=== PATIENT | male | born 1985 | race Caucasian/White ===

== ENCOUNTER 2024-09-20 16:47 | Emergency (ER) | payer OTHER, SELFPAY ==
--- NOTE | ~2024-09-20 | CT_ITS ---
CLINICAL INDICATION: Right flank pain COMPARISON: None. TECHNIQUE: Multiple contiguous axial images of the abdomen and pelvis were performed without the admi nistration of intravenous contrast The dose-length product (DLP) was 803.37 mGy-cm. Automated exposure control and iterative reconstruction technique were employed. FINDINGS/OBSERVATIONS: Visualized lower thorax: Bibasilar atelectasis. The bilateral lung bases are otherwise clear The heart is of normal size, without pericardial effusion. Small hiatal hernia is present. Liver: The liver demonstrates homogeneous attenuation and is not enlarged. Gallbladder and biliary system: The gallbladder is only minimally distended, and otherwise unremarkable. Pancreas: Limited evaluation of the pancreas secondary to the lack of intravenous contrast. Spleen: The spleen demonstrates homogeneous attenuation and is not enlarged. Kidneys: The bilateral kidneys are unremarkable, without hydronephrosis or renal calculi. Adrenal glands: Unremarkable. Gastrointestinal tract: Colonic diverticulosis without surrounding inflammatory change. Fecal stasis within the colon. Appendix: The air-filled appendix is of normal caliber (axial series, images 116 through 141). Vasculature: Unremarkable. Lymph nodes: No pathologically enlarged or morphologically suspicious lymph nodes within the retroperitoneum or at the root of the mesentery. Pelvic structures: The bladder is only minimally distended, and otherwise unremarkable. The prostate gland is not enlarged. Body wall and musculoskeletal: Fat and likely urachal-containing right inguinal hernia. Fat-containing umbilical hernia. 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 IMPRESSION: No obstructive uropathy. Normal appendix. Fat and likely urachal-containing right inguinal hernia. Reviewed, dictated and finalized at location A.
[2024-09-20 16:49] VITALS: BP 133/74; PULSE 129; RESP 18; TEMP 36.7; O2SAT 98
--- OUTSIDE RECORDS SUMMARY | 2024-09-20 16:52 | XMS_ITS | Clinical Summary ---
Author Organization [facility] Address [address] [place] [address] Care Team Providers Care Meal Temperer Name Role Phone Unavailable Primary Care Provider Unavailabl e Source Comments [facility],non-owned Affiliates and Associated Physician Practices is amultiple site organization consisting of ambulatory clinics and hospital sitesin [place], [place], [place] and [place]. This disclosure is being madepursuant to the Care Everywhere program and may not contain all information available regarding this patient. 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 Gender Identity Not on file Sexual Orientation Not on file Plan of Treatment Health Maintenance Due Date Last Done Comments LIPID TESTING 1984 HIV SCREENING 1999 HEPATITIS C SCREENING 05/21/2002 DTAP/TDAP/TD VACCINES (1 - Tdap) 2003 HEPATITIS B VACCINE (1 of 3 - 19+ 3-dose series) 2003 COVID-19 VACCINE ( - 2023-2 5 season) 2023 DEPRESSION SCREENING 04/06/2024 INFLUENZA VACCINE (Season Ended) 2024 ZOSTER VACCINE (1 of 2) 2034 HIB VACCINE Aged Out No longer eligi ble based on patient's age to complete this topic HPV VACCINE Aged Out No longer eligi ble based on patient's age to complete this topic MENINGOCOCCAL (Group B) VACC INE SHARED DECISION-MAKING Aged Out No longer eligibl e based on patient's age to complete this topic MENINGOCOCCAL GROUPS A/C/Y/W VACCINE Aged Out No longer eligible b ased on patient's age to complete this topic PNEUMOCOCCAL VACCINE Aged Out No long er eligible based on patient's age to complete this topic
[2024-09-20 17:07] VITALS: BP 117/73; PULSE 75; RESP 18; TEMP 36.6; O2SAT 94
[2024-09-20 17:20] LABS: Basophils Percent Auto 0.4 % (0.2-1.2); Eosinophils Percent Auto 0.2 % (0-4.4); Hematocrit 49.3 % (42.0-52.0); Hemoglobin 16.4 g/dL (14.0-18.0); Immature Granulocyte Absolute 0.03 K/mm3 (0.00-0.031); Immature Granulocyte Percent A 0.3 % (0-0.5); Lymphocytes Absolute Auto 1.29 K/mm3 (0.9-3.2); Lymphocytes Percent Auto 12.4 % (18.3-44.2); Mean Corpuscular HGB Conc 33.3 g/dl (32-36); Mean Corpuscular Hemoglobin 29.6 pg (26-34); Monocytes Absolute Auto 0.9 K/mm3 (0.1-0.6); Monocytes Percent Auto 8.3 % (2.6-8.5); Neutrophils Absolute Auto 8.2 K/mm3 (1.3-6.7); Neutrophils Percent Auto 78.4 % (45.5-73.1); Platelet Count Result 183 k/mm3 (150-375); Red Blood Count 5.54 M/mm3 (4.6-6.20); Red Cell Distribution Width 12.3 % (11.5-14.5); White Blood Count 10.4 K/mm3 (4.5-10.0)
[2024-09-20] MEDS: SODIUM CHLORIDE 0.9% IV 1,000 ML 999 ML IV CONT ×2 (17:22→20:01)
--- NOTE | 2024-09-20 17:25 | ED.ABDPAIN ---
HPI - Abdominal Pain General Chief Complaint: Urogenital-Male Stated Complaint: back pain Time Seen by Provider: 09/20/24 17:07 Source: patient Mode of arrival: ambulatory Limitations: no limitations History of Present Illness HPI narrative: This is a 39-year-old male that presents to the emergency department for right flank pain. Ongoing over the last couple of days. Reports he believes he has a kidney stone. He has had them before. He does not currently have a urologist. Reports some dysuria. Denies fevers, hematuria. Related Data Allergies Allergy/AdvReac Type Severity Reaction Status Date / Time No Known Allergies Allergy Unverified 09/20/24 19:28 Review of Systems Review of Systems: All systems reviewed & are unremarkable except as noted in HPI and below PMFSH Past Medical History Medical History (Updated 09/20/24 @ 20:25 by Eden Rhodes PA-C) No active medical problems Social History Social History (Updated 09/20/24 @ 17:25 by Eden Rhodes PA-C) Smoking status: Never smoker Exam Narrative: GENERAL: Uncomfortable, well-nourished, and in no acute distress. HEAD: Normocephalic, atraumatic. EYES: EOMI. ENT: Nares clear, no rhinorrhea or epistaxis. Mucous membranes moist. Oropharynx without tonsillar hypertrophy exudate or other lesions. CHEST: Clear to auscultation. No respiratory distress. No wheezes rales or rhonchi HEART: Regular rate and rhythm. No murmur heard. Normal peripheral pulses. ABDOMEN: Soft, nontender, nondistended, normal active bowel sounds. EXTREMITIES: Normal range of motion. No edema. SKIN: Warm, dry, no rash. NEURO: No focal deficits. Alert and oriented x3. PSYCH: Normal mood and affect Course Course Emergency Course: Patient updated on his workup and agrees with plan of care. Resting comfortably Vital Signs Vital signs: Vital Signs Temperature 98.1 F 09/20/24 16:49 Pulse Rate 129 H 09/20/24 16:49 Respiratory Rate 18 09/20/24 16:49 Blood Pressure 133/74 09/20/24 16:49 Pulse Oximetry 98 09/20/24 16:49 Oxygen Delivery Room Air 09/20/24 16:49 Temperature 98 F 09/20/24 17:07 Pulse Rate 81 09/20/24 20:25 Respiratory Rate 18 09/20/24 20:25 Blood Pressure 167/99 H 09/20/24 20:25 Pulse Oximetry 99 09/20/24 20:25 Oxygen Delivery Room Air 09/20/24 17:07 MDM - Abdominal Pain MDM Narrative Medical decision making narrative: Patient presents to the emergency department for right flank pain. Ongoing over the last couple of days. He is afebrile and nontoxic appearing. Tachycardic upon arrival, this normalized with IV fluid hydration. CBC with mild leukocytosis to 10.4. Metabolic panel with mild elevation in creatinine to 1.4. Urine also with some evidence of dehydration. Patient hydrated with 2 L of IV fluids in the ED. tolerating oral intake. CT abdomen and pelvis is without acute findings. Patient updated on his workup and agrees with plan of care. Resting comfortably. He is to follow up with primary provider. He was given warnings to return to the ER Differential Diagnosis Differential diagnosis: Likely calculus of kidney and other (Dehydration, UTI, muscle strain) Lab Data Attestation: I reviewed the patient's lab results. 09/20/24 17:14 09/20/24 17:14 Labs: Lab Results 09/20/24 09/20/24 Range/Units 17:14 19:27 WBC 10.4 H (4.5-10.0) K/mm3 RBC 5.54 (4.6-6.20) M/mm3 Hgb 16.4 (14.0-18.0) g/dL Hct 49.3 (42.0-52.0) % MCV 89.0 (80-100) fl MCH 29.6 (26-34) pg MCHC 33.3 (32-36) g/dl RDW 12.3 (11.5-14.5) % Plt Count 183 (150-375) k/mm3 MPV 9.0 (7.4-10.4) fl Immature Gran % (Auto) 0.3 (0-0.5) % Neut % (Auto) 78.4 H (45.5-73.1) % Lymph % (Auto) 12.4 L (18.3-44.2) % [place] % (Auto) 8.3 (2.6-8.5) % Eos % (Auto) 0.2 (0-4.4) % Baso % (Auto) 0.4 (0.2-1.2) % Lymph # (Auto) 1.29 (0.9-3.2) K/mm3 [place] # (Auto) 0.9 H (0.1-0.6) K/mm3 Eos # (Auto) 0.0 (0-0.3) K/mm3 Baso # (Auto) 0.0 (0.0-0.1) K/mm3 Abs Immat Gran (auto) 0.03 (0.00-0.031) K/mm3 Absolute Neuts (auto) 8.2 H (1.3-6.7) K/mm3 Absolute Nucleated RBC 0.000 (0.0-0.012) K/mm3 Nucleated RBC % 0.0 (0.0-0.2) % Sodium 136 L (137-145) mmol/L Potassium 4.0 (3.4-5.0) mmol/L Chloride 106 (98-107) mmol/L Carbon Dioxide 19 L (22-30) mmol/L Anion Gap 11 (4-12) mmol/L BUN 20 (9-20) mg/dL Creatinine 1.40 H (0.7-1.3) mg/dL Estim Creat Clear Calc 94 ml/min Estimated GFR 56 L (59 - ) Glucose 98 (65-110) mg/dL Calcium 9.5 (8.4-10.2) mg/dL Total Bilirubin 1.3 (0.2-1.3) mg/dL AST 33 (17-59) U/L ALT 31 (6-50) U/L Alkaline Phosphatase 96 (38-126) U/L Total Creatine Kinase 200 H (55-170) U/L Total Protein 8.0 (6.3-8.2) g/dL Albumin 4.7 (3.5-5.1) g/dL Lipase 29 (23-300) U/L Urine Color Yellow (Yellow) Urine Appearance Clear (Clear) Urine pH 5.0 (5.0-9.0) Ur Specific [place] 1.026 (1.001-1.035) Urine Protein Negative (Negative) mg/dL Urine Glucose (UA) Negative (Negative) mg/dL Urine Ketones 2+ H (Negative) mg/dL Ur Blood (Man) Negative (Negative) Urine Nitrate Negative (Negative) Urine Bilirubin Negative (Negative) Urine Urobilinogen 1.0 (<2.0) mg/dL Leukocyte Esterase Rfl Negative (Negative) ABBY/UL Imaging Data Radiologist's impression: ITS Impressions Abdomen/Pelvis CT 09/20/24 18:05 IMPRESSION: No obstructive uropathy. Normal appendix. Fat and likely urachal-containing right inguinal hernia. Critical Care Time Critical Care Time Critical Care Time: No Discharge Plan Discharge Clinical Impression: Dehydration, Acute flank pain Patient Disposition: Home Condition: Improved Instructions: Dehydration (ED), Flank Pain (ED) Additional Instructions: Return to the ER if you experience fever, abdominal pain with nausea and vomiting, you are unable to keep down liquids or solids, blood in the urine or any other symptoms that are concerning to you Remain well hydrated Follow up with primary care doctor Patient Language: Greenlandic Follow-up/Referrals: PHYSICIAN,VOYAGE MANAGEMENT SYSTEM OPERATOR [Primary Care Provider] - Gurpreet Ladd MD [Physician] -
[2024-09-20 17:28] LABS: Alanine Aminotransferase 31 U/L (6-50); Albumin Level 4.7 g/dL (3.5-5.1); Alkaline Phosphatase 96 U/L (38-126); Anion Gap 11 mmol/L (4-12); Aspartate Amino Transferase 33 U/L (17-59); Bilirubin,Total 1.3 mg/dL (0.2-1.3); Blood Urea Nitrogen 20 mg/dL (9-20); Calcium 9.5 mg/dL (8.4-10.2); Carbon Dioxide 19 mmol/L (22-30); Chloride 106 mmol/L (98-107); Creatine Kinase 200 U/L (55-170); Estimated CRCL calculation 94 ml/min; Estimated Glomerular Filt Rate 56; Glucose 98 mg/dL (65-110); Lipase 29 U/L (23-300); Sodium 136 mmol/L (137-145)
--- NOTE | 2024-09-20 17:32 | PC.NURSE ---
Patient states he does not want to take the morphine or zofran at this time. RN will continue to assess pain level and if he would like pain medication.
--- OUTSIDE RECORDS SUMMARY | 2024-09-20 17:36 | XMS_ITS | Clinical Summary ---
Author Organization [facility] Address [address] [address] Care Team Providers Care Supervisor Graphite Name Role Phone Unavailable Primary Care Provider Unavailabl e Source Comments [facility],non-owned Affiliates and Associated Physician Practices is amultiple site organization consisting of ambulatory clinics and hospital sitesin [place], [place], [place] and [place]. This disclosure is being madepursuant to the Care Everywhere program and may not contain all information available regarding this patient. 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
--- OUTSIDE RECORDS SUMMARY | 2024-09-20 17:36 | XMS_ITS | Clinical Summary ---
Author Organization [facility] Address [address] [place] [address] Care Team Providers Care Service Operator Name Role Phone Damon Kaye MD Primary Care Provider [phone] Allergies No known active allergies Medications methylPREDNISol LESLEY ray, (MEDROL DOSEPAK) 4 MG tablet 6 TABLETS ON DAY ONE, 5 TABLETS DAY TWO, 4 TABLETS DAY THREE, 3 TABLETS DAY FOUR, 2 TABLETS DAY FIVE, AND 1 TABLET DAY SIX 1 each 11/21/2021 Active Active Problems Problem Noted Date Diagnosed Date BMI 36.0-36.9,adult 05/17/2019 Immunizations Immunization Administration Dates Next Due Fluzone Adult - >Age 3 (Pref illed Syringe) 05/17/2019(Deferred: Patient Refused) Hepatitis B (Generic: Adult) 05/05/2012,12/12/19 12,10/28/2011 Family History Medical History Relation Comments Cancer Father Stroke Father Relation Status Comments Father Mother Alive Social History Tobacco Use Types Packs/Day Years Used Date Smoking Tobacco: Never Smokeless Tobacco: Never Alcohol Use Standard Drinks/Week Comments Yes 0 (1 standard drink = 0.6 oz pur e alcohol) rarely AUDIT-C Answer Date Recorded Frequency of Alcohol Consumption Monthly or less 05/17/2019 Average Number of Drinks Not on file 020 Frequency of Binge Drinking Not on file 05/07 PHQ-2 Answer Date Recorded PHQ-2 Score 0 05/17/2019 Education Answer Date Recorded What is the highest level of school you have completed or the highest degree you have received? Some college, no degree 05/17/2019 Sex and Gender Information Value Date Recorded Sex Assigned at Not on file Legal Sex Male 6:49 PM CDT Gender Identity Not on file Sexual Orientation Not on file Last Filed Vital Signs Vital Sign Reading Time Taken Comments Blood Pressure 136/81 11/21/2021 3:30 PM CDT Pulse 75 11/21/2021 3:30 PM CDT Temperature 36.7 C (98 F) 11/21/2021 3:30 PM CDT Respiratory Rate 16 11/21/2021 3:30 PM CDT Oxygen Saturation 94% 11/21/2021 3:30 PM CDT Inhaled Oxygen Concentration - - Weight 129.3 kg (285 lb) 11/21/2021 3:30 PM CDT Height 188 cm (6' 2) 11/21/2021 3:30 PM CDT Body Mass Index 36.59 11/21/2021 3:30 PM CDT Plan of Treatment Health Maintenance Due Date Last Done Comments Hepatitis C 2002 DTaP, Tdap and Td Vaccines ( 1 - Tdap) 2003 Annual Physical 05/17/2020 05/17/2019 COVID-19 Vaccine (2023-2 5 season) 2023 Hepatitis B Vaccines Completed 05/05/2012, 12/12/2011, 10/28/2011 HPV Vaccines Aged Out No longer eligi ble based on patient's age to complete this topic Meningococcal B Vaccine Aged Out No l onger eligible based on patient's age to complete this topic Meningococcal Vaccine Aged Out No jose e grace eligible based on patient's age to complete this topic Pneumococcal Vaccine: Pediatrics (0 to 5 Years) and At-Risk Patients (6 to 49 Years) Aged Out No longer eligible b ased on patient's age to complete this topic RSV Immunizations Under 20 Months Aged Out No longer eligible b ased on patient's age to complete this topic Insurance Care Teams Service Operator Relationship Specialty [place] [address] [place] [address] PCP - General FAMILY PRACTICE 05/17/19
[2024-09-20 19:10] VITALS: BP 167/97; PULSE 96; RESP 18; O2SAT 100
--- NOTE | 2024-09-20 19:11 | PC.NURSE ---
Pt states he can not provide a urine sample at this time. Pt educated on importance. Will check back in 5 minutes.
--- NOTE | 2024-09-20 19:12 | PC.NURSE ---
Pt still unable to urinate for urine sample at this time.
[2024-09-20 19:35] LABS: Add Urine Microscopic? NO; Appearance Urine Clear (Clear); Bilirubin Urine Negative (Negative); Blood Urine Negative (Negative); Color Urine Yellow (Yellow); Glucose Urine UA Negative (Negative); Ketones Urine 2+ mg/dL (Negative); Leukocyte Esterase Ur Negative LEU/UL (Negative); Nitrate Urine Negative (Negative); Protein Urine Negative (Negative); Specific Grav Ur 1.026 (1.001-1.035)
[2024-09-20 20:25] VITALS: BP 167/99; PULSE 81; RESP 18; O2SAT 99
--- NOTE | 2024-09-20 20:40 | PC.NURSE ---
This RN gave pt a pt portal brochure and educated on how to access medical records due to pt request.
== END 2024-09-20 21:01 | disposition home or self-care (01) ==
PROVIDERS: Emergency Provider Physician Assistant
DX: R10.9 Unspecified abdominal pain (principal); E86.0 Dehydration
CPT/HCPCS: 36415; 74176; 80053; 81003; 82550; 83690; 85025; 96360; 96361; 99284; J7030